=== PATIENT | male | born 1975 | race Caucasian/White ===

== ENCOUNTER 2024-09-29 18:49 | Emergency (ER) | payer BC ==
[2024-09-29] MEDS: Sodium Chloride 0.9% 1,000 ML IV ONE (18:50)
[2024-09-29] MEDS ORDERED: Naloxone 0.4 MG/ML SDV IVPUSH PRN ×3 (19:11→20:54)
[2024-09-29 19:16] LABS: BASOPHILS ABSOLUTE AUTO 0.04 K/uL (0.00-0.10); BASOPHILS PERCENT AUTO 0.3 % (0.1-1.3); EOSINOPHILS ABSOLUTE AUTO 0.03 K/uL (0.00-0.40); EOSINOPHILS PERCENT AUTO 0.2 % (0.0-5.4); HEMATOCRIT 40.4 % (38.4-49.7); HEMOGLOBIN 14.4 g/dL (12.9-16.9); IMMATURE GRAN ABSOLUTE AUTO 0.07 K/uL (0.00-0.23); IMMATURE GRAN PERCENT AUTO 0.5 % (0.0-0.7); LYMPHOCYTES ABSOLUTE AUTO 1.11 K/uL (0.8-3.3); LYMPHOCYTES PERCENT AUTO 7.5 % (11.4-47.7); MEAN CORPUSCULAR HEMOGLOBIN 30.5 pg (31.6-35.5); MEAN CORPUSCULAR HGB CONC 35.6 g/dL (31.6-35.5); MEAN CORPUSCULAR VOLUME 85.6 fL (81.4-99.0); MONOCYTES ABSOLUTE AUTO 1.11 K/uL (0.20-0.90); MONOCYTES PERCENT AUTO 7.5 % (3.3-12.6); PLATELET COUNT,PLT 209 K/uL (130-375); RED BLOOD CELL COUNT 4.72 M/uL (4.14-5.76); WHITE BLOOD CELL COUNT,WBC 14.9 K/uL (3.2-11.0)
[2024-09-29] MEDS: HYDROmorphone 1 MG/ML Syringe IVPUSH ONE (19:20)
[2024-09-29 19:33] LABS: PROTHROMBIN TIME 10.2 sec (9.2-10.6)
[2024-09-29 19:40] LABS: A/G RATIO 1.1 (1.2-2.2); ALANINE AMINOTRANSFERASE,ALT 43 U/L (12-78); ALKALINE PHOSPHATASE 64 U/L (46-116); ANION GAP 10.8 mmol/L (5.0-14.0); ASPARTATE AMNIOTRANSFERASE,AST 66 U/L (15-37); BILIRUBIN TOTAL 0.4 mg/dL (0.2-1.0); BLOOD UREA NITROGEN,BUN 15 mg/dL (7-18); CALCIUM 8.5 mg/dL (8.5-10.1); CARBON DIOXIDE,CO2 26 mmol/L (21-32); CHLORIDE,CL 103 mmol/L (100-108); CREATININE 1.3 mg/dL (0.8-1.3); ESTIMATED GFR 68 mL/min (>60); GLUCOSE RANDOM 128 mg/dL (74-106); POTASSIUM,K 4.3 mmol/L (3.6-5.2); PROTEIN TOTAL,TP 7.7 g/dL (6.4-8.2); SODIUM,NA 140 mmol/L (140-148)
[2024-09-29 19:41] LABS: TROPONIN I HIGH SENSITIVITY < 4.0 pg/mL (<=60.3)
[2024-09-29] MEDS ORDERED: Sodium Chloride 0.9% 80 ML IV ONE (19:53)
[2024-09-29] MEDS ORDERED: Sodium Chloride 0.9% 10 ML Syringe FLUSH PRN (19:53)
[2024-09-29] MEDS ORDERED: Iopamidol 612 MG/ML 100 ML Bottle IV PRN (19:53)
[2024-09-29] MEDS: HYDROmorphone 0.5 MG/0.5 ML Syringe IVPUSH ONE (20:17)
[2024-09-29] MEDS: Morphine 2 MG/ML SYRINGE IVPUSH ONE (21:29)
== END 2024-09-29 21:25 | disposition other institution (70) ==
LOC: JP.ED 18:49
DX: S22.41XA Multiple fractures of ribs, right side, initial encounter for closed fracture (principal); S27.1XXA Traumatic hemothorax, initial encounter; Z79.899 Other long term (current) drug therapy; V86.52XA Driver of snowmobile injured in nontraffic accident, initial encounter; Y93.29 Activity, other involving ice and snow
CPT/HCPCS: 36415; 70450; 71260; 72125; 74177; 76377; 80053; 80307; 84484; 85025; 85610; 86850; 86900; 86901; 93005; 93010; 96361; 96374; 96375; 96376; 99285; J1171; J2270